=== PATIENT | female | born 2000 | race Caucasian/White ===

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

== ENCOUNTER → 2022-06-01 | Outpatient (CLI) | payer MEDICAID ==
[~2022-06-01] MED LIST changes: +DOCU-143 PO; +HYDR-4226 PO
== END ==
LOC: LABNPT 15:39
PROVIDERS: ATTEND Registered Nurse Emergency
DX: Z01.89 Encounter for other specified special examinations (principal)
CPT/HCPCS: 87491; 87591

== ENCOUNTER → 2022-06-04 | Outpatient (CLI) | payer MEDICAID ==
--- NOTE | 2022-06-04 12:32 | Diagnostic Imaging Report ---
PROCEDURE: Pelvic comp/transvaginal sonogram. TECHNIQUE: Complete transabdominal and transvaginal pelvic ultrasound was performed. In addition, limited pelvic Doppler was performed. INDICATION: IUD check. FINDINGS: The uterus is anteverted measuring 6.1 x 3.0 x 3.8 cm. The IUD appears to be appropriately centered in the endometrial canal. No myometrial mass is detected. The endometrium is 5 mm in thickness. No abnormal vascularity is seen with pelvic Doppler. An adnexal evaluation was performed. The ovaries could not be visualized due to overlying bowel gas. No adnexal mass or free fluid is detected. IMPRESSION: 1. The IUD is appropriately centered in the endometrial canal. 2. Nonvisualized ovaries. Dictated by: Dictated on workstation # [id number]
== END ==
LOC: RAD 10:00
PROVIDERS: ATTEND Family Medicine
DX: Z30.431 Encounter for routine checking of intrauterine contraceptive device (principal)
CPT/HCPCS: 76830; 76856